=== PATIENT | male | born 1955 | race Two or more races ===

== ENCOUNTER → 2021-10-10 | Outpatient (CLI) | payer OTHER ==
[2015-11-05 10:45] VITALS: BP 140/65
[~2021-10-10] MED LIST: AMLO-187 PO; CALC667C6 PO; CARV25TA2 PO; FOLI0.8T3 PO; HYDR100T24 PO; HYDR12.575 PO; LOSA100T14 PO; SIMV20TA18 PO
--- NOTE | 2021-10-10 16:17 | RAD ---
AP and Lateral Views of the Chest 10/10/2021 3:34 PM Indication: Reason: Covid +, possible pnumonia / Spl. Instructions: / History: Comparison: Chest radiograph August 24, 2015 Findings: Dominantly linear opacities are noted in the lung bases posteromedially atelectasis or willy y infiltrates. No pneumothorax. No pleural effusion. Heart size is normal. No acute osseous changes a re appreciated. IMPRESSION: Linear opacities in lung bases possibly atelectasis or early infiltrate. Radiographic fol low-up recommended. Electronically signed by: Leonard Taylor MD (10/10/2021 4:14 PM) [id number]
== END ==
LOC: RAD 15:01
PROVIDERS: ATTEND Internal Medicine
DX: U07.1 COVID-19 (principal); R91.8 Other nonspecific abnormal finding of lung field; J18.9 Pneumonia, unspecified organism; Z94.0 Kidney transplant status
CPT/HCPCS: 71046